=== PATIENT | female | born 1975 | race Caucasian/White ===

== ENCOUNTER → 2016-07-28 | Outpatient (CLI) | payer BC ==
[~2016-07-28] MED LIST: ALBU8.5H3 IH; HYDR-4246 PO; HYDR12.54 PO; MONT10TA25 PO; TRAM50TA4 PO
== END ==
LOC: WC.BC 08:19
DX: Z12.31 Encounter for screening mammogram for malignant neoplasm of breast (principal)
CPT/HCPCS: 77063; G0202